=== PATIENT | female | born 1980 | race Caucasian/White ===

== ENCOUNTER → 2022-12-12 13:42 | Outpatient (CLI) | payer OTHER, SELFPAY ==
[2022-12-12 20:07] LABS: Thyroid Stimulating Hormone 0.917 uIU/mL (0.47-4.68)
[2022-12-12 20:21] LABS: Free T3, Triiodothyronine Free 3.94 pg/mL (2.77-5.27); Free T4, Direct Thyroxine 0.65 ng/dL (0.78-2.19)
== END ==
PROVIDERS: Visit Provider Nurse Practitioner Family
DX: E03.9 Hypothyroidism, unspecified (principal)
CPT/HCPCS: 84439; 84443; 84481

== ENCOUNTER → 2024-10-16 13:56 | Outpatient (CLI) | payer OTHER, SELFPAY ==
[2024-10-16 21:12] LABS: Hemoglobin A1C% w Est Avg Glu 4.9 % (4.0-6.0)
[2024-10-16 21:25] LABS: Free T3, Triiodothyronine Free 6.37 pg/mL (2.77-5.27); Free T4, Direct Thyroxine 0.66 ng/dL (0.78-2.19)
[2024-10-16 21:38] LABS: Thyroid Stimulating Hormone 0.217 uIU/mL (0.47-4.68)
== END ==
PROVIDERS: Visit Provider Nurse Practitioner Family
DX: E03.9 Hypothyroidism, unspecified (principal); E66.812 Obesity, class 2; E66.09 Other obesity due to excess calories; Z68.37 Body mass index [BMI] 37.0-37.9, adult
CPT/HCPCS: 83036; 84439; 84443; 84481